=== PATIENT | male | born 1940 | race Caucasian/White ===

== ENCOUNTER → 2017-03-07 | Outpatient (CLI) | payer OTHER ==
[~2017-03-07] VITALS: Ht 167.6 cm; Wt 93.9 kg
[~2017-03-07] MED LIST: ACYCLOVIR 400400 MG PO; ALLOPURINOL 10100 M1 PO; ALLOPURINOL 30300 M2 PO; BENICAR20 MG; BENICAR40 MG PO; CONSTULOSE10 GM/15 M PO; DEMADEX20 MG PO; DOLOPHINE HCL10 MG PO; ENULOSE10 GM/15 M PO; GABAPENTIN 100100 MG PO; LINZESS145 MCG PO; METHADONE HCL 110 M1 PO; MOVANTIK25 MG PO; NAPROSYN500 MG PO; TERBINAFINE HC250 MG PO; VITAMIN B-12500 MCG PO; VITAMIN D2000 UNIT PO
--- NOTE | ~2017-03-07 | HPC ---
[place] [address] PAIN MANAGEMENT CONSULTATION Name: HERMANN ALVAREZ Room #: REG MAGO Rutledge#: [id number] Admission: 03/07/17 Attend Phys: Mehran Brody DO Discharge: Date of : 42 Report #: [id number] THIS REPORT FOR: //name// CC: Yves Brody HISTORY OF PRESENT ILLNESS: The patient is a 76-year-old gentleman being treated for cervical radiculopathy status post decompressive laminectomy, cervical myelopathy and neuropathic pain requiring complex medication management. Last seen in the pain clinic on 11/30/2016. The patient was continued on methadone 10 mg b.i.d. with lactulose for opioid-induced constipation. His last urine drug screen was 08/27/2016. Positive for prescribed medications. The patient had had an untoward drug reaction on the last visit, was having some erythema. 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 The erythematous skin reaction seems to have resolved. In retrospect, his treating physicians think maybe the culprit was Lyrica, which had been added to his gabapentin. It did cause some significant lower extremity edema. Presently, he is back to taking gabapentin 300 mg b.i.d. and methadone 10 mg b.i.d. Notes medications are providing sufficient analgesia to participate in activities of daily living. Rates his subjective pain score as 7 on a 0-10 visual analog scale, primarily neck and upper arms. We reviewed the fact that opiate medications are being used to provide analgesia adequate to support activities of daily living, not attempting to achieve a specific pain score on the 0-10 Visual Analog Scale. The current opiate medications are providing sufficient analgesia to allow the patient to participate in activities of daily living. The patient is not exhibiting any aberrant behavior suggestive of drug diversion. The patient is not having any adverse reactions to medications. The patient is not suffering from daytime somnolence or mental acuity changes. The patient is managing opiate-induced constipation with appropriate rcix-krt-mdwpwmb agents and dietary considerations. The patient was counseled on concern for caution with operating a motor vehicle while using opiate medications. A physical exam was performed and the patient's functional status was evaluated. All patients with back pain were advised against the bed rest greater than 4 days and were advised to return to normal activities. Pain score assessment was noted and the treatment plan was reviewed with the patient. All current medications, both prescribed and OTC were reviewed and reconciled on the electronic medical record. Tobacco screening was accomplished and smoking cessation was advised when indicated. BMI was noted and diet/exercise modification was recommended for all patients following outside normal parameters. I reviewed with the patient today their responsibilities to [address] [address] PAIN MANAGEMENT CONSULTATION Name: HERMANN ALVAREZ SUSAN Room #: REG CLJane Rutledge#: [id number] Admission: 03/07/17 Attend Phys: Mehran Brody DO Discharge: Date of : 42 Report #: [id number] prescription medications, reviewed their responsibility to utilize medications only as prescribed by the physician. They are to seek and receive pain medications only from 1 physician group ([facility]). They are to use 1 pharmacy and keep the clinic informed if they change pharmacies. Their responsibilities include making followup visits in a timely fashion and to avoid abrupt discontinuation of medication usage. Their responsibilities further include bringing their medications (bottles from the pharmacy with residual pills) to the visit for possible confirmation of pill counts and the patient understands it is their responsibility to submit to random drug screens to ensure both that the medications prescribed are present, and that no other controlled substances are present. All prescriptions provided today were generated electronically. PHYSICAL EXAMINATION: GENERAL: Generally unchanged, a 76-year-old gentleman. BMI is 33.4 kg/m2. VITAL SIGNS: Stable as noted in the EMR. MUSCULOSKELETAL: Cervical range of motion is limited. Upper extremity strength is symmetric. Subjective paresthesia in the upper arms. Hand grasp is symmetric. He does have facial asymmetry compatible with prior visits. He has had an extensive ACDF C3, C4, C5 and C6 in 2004. ASSESSMENT: Symptomatic cervical radiculopathy status post decompressive laminectomy, myelopathic pain component, neuropathic pain requiring complex medication management, stable on baseline medication. RECOMMENDATIONS: Continue methadone 10 mg b.i.d. I have taken the liberty of writing for 3 months of current medication, lactulose 10 mg/15 mL, dispensed 450 mL, dose is 15 mL daily for opioid-induced constipation. Follow up in 3 months for reevaluation, earlier if needed. <ELECTRONICALLY SIGNED> By: Mehran Brody DO 03/08/17 1626 [id number] Mehran Brody DO /nt
[2017-03-07 13:55] VITALS: BP 157/88
== END | disposition home or self-care (01) ==
LOC: PAIN 07:20
DX: M54.12 Radiculopathy, cervical region (principal); G62.9 Polyneuropathy, unspecified; G95.9 Disease of spinal cord, unspecified

== ENCOUNTER → 2017-07-12 | Outpatient (CLI) | payer OTHER ==
[~2017-07-12] VITALS: Ht 167.6 cm; Wt 94.4 kg
--- NOTE | ~2017-07-12 | HPC ---
[facility] [place] [address] PAIN MANAGEMENT CONSULTATION Name: HERMANN ALVAREZ Room #: REG MAGO Rutledge#: [id number] Admission: 07/12/17 Attend Phys: Mehran Brody DO Discharge: Date of : 42 Report #: [id number] THIS REPORT FOR: //name// CC: Yves Brody DATE OF SERVICE: 07/12/2017 The patient is a 76-year-old gentleman, long known to the pain clinic, being treated for cervical radiculopathy status post decompressive laminectomy, cervical myelopathy and neuropathic pain requiring high-risk complex medication management. The patient has continued on methadone 10 mg b.i.d., lactulose for opiate-induced constipation. Last urine drug screen 08/27/2016 was positive for prescribed medications. He returns to pain clinic today noting medications continue to be helpful for enabling the patient to participate in activities of daily living, rates the pain as a 7 on the Visual Analog Scale, but is able to function. Pain is primarily neck, both arms with some bipedal neuropathy. PHYSICAL EXAMINATION: Unchanged. A 76-year-old gentleman, 33.6 kilograms per meter squared body mass index. Vital signs stable. Rises from chair using armrests. Antalgic gait. Cervical range of motion is significantly limited. Upper extremity strength is diminished. Asymmetric facies due to neural compromise. We reviewed the fact that opiate medications are being used to provide analgesia adequate to support activities of daily living, not attempting to achieve a specific pain score on the 0-10 Visual Analog Scale. The current opiate medications are providing sufficient analgesia to allow the patient to participate in activities of daily living. The patient is not exhibiting any aberrant behavior suggestive of drug diversion. The patient is not having any adverse reactions to medications. The patient is not suffering from daytime somnolence or mental acuity changes. The patient is managing opiate-induced constipation with appropriate yhtc-lli-mmhdsib agents and dietary considerations. The patient was counseled on concern for caution with operating a motor vehicle while using opiate medications. A physical exam was performed and the patient's functional status was evaluated. All patients with back pain were advised against the bed rest greater than 4 days and were advised to return to normal activities. Pain score assessment was noted and the treatment plan was reviewed with the patient. All current medications, both prescribed and OTC were reviewed and reconciled on the electronic medical record. Tobacco screening was accomplished and smoking cessation was advised when indicated. BMI was noted and diet/exercise modification was recommended for all patients following outside normal [address] [address] PAIN MANAGEMENT CONSULTATION Name: HERMANN ALVAREZ Room #: REG MAGO Rutledge#: [id number] Admission: 07/12/17 Attend Phys: Mehran Brody DO Discharge: Date of : 42 Report #: [id number] parameters. I reviewed with the patient today their responsibilities to safeguard prescription medications, reviewed their responsibility to utilize medications only as prescribed by the physician. They are to seek and receive pain medications only from 1 physician group ( [facility]). They are to use 1 pharmacy and keep the clinic informed if they change pharmacies. Their responsibilities include making followup visits in a timely fashion and to avoid abrupt discontinuation of medication usage. Their responsibilities further include bringing their medications (bottles from the pharmacy with residual pills) to the visit for possible confirmation of pill counts and the patient understands it is their responsibility to submit to random drug screens to ensure both that the medications prescribed are present, and that no other controlled substances are present. All prescriptions provided today were generated electronically. ASSESSMENT: Cervical radiculopathy status post decompressive laminectomy, neuropathic pain, myelopathy requiring high-risk complex medication management, stable on baseline medication. RECOMMENDATION: Renewed methadone 10 mg b.i.d., lactulose 10 mg/15 mL, dispensed 450 mL, directions 15 mL per day as needed for opioid-induced constipation. Continue high fiber diet and fluids. Gabapentin 300 mg b.i.d. Follow up as needed for medication management. <ELECTRONICALLY SIGNED> By: Mehran Brody DO 07/15/17 1014 1604 1319 Mehran Brody DO /nt
[2017-07-12 13:06] VITALS: BP 134/71
== END | disposition home or self-care (01) ==
LOC: PAIN 06-28 07:53
DX: M54.12 Radiculopathy, cervical region (principal); Z98.890 Other specified postprocedural states; G62.9 Polyneuropathy, unspecified; Z68.33 Body mass index [BMI] 33.0-33.9, adult; Z79.899 Other long term (current) drug therapy

== ENCOUNTER → 2017-11-08 | Outpatient (CLI) | payer OTHER ==
[~2017-11-08] VITALS: Ht 167.6 cm; Wt 97.8 kg
--- NOTE | ~2017-11-08 | HPC ---
[facility] [place] [address] PAIN MANAGEMENT CONSULTATION Name: HERMANN ALVAREZ Room #: REG MAGO Rutledge#: [id number] Admission: 11/08/17 Attend Phys: Mehran Brody DO Discharge: Date of : 42 Report #: [id number] THIS REPORT FOR: //name// CC: Yves Brody DATE OF SERVICE: 11/08/2017 HISTORY OF PRESENT ILLNESS: The patient set a 76-year-old gentleman, being treated for cervical radiculopathy status post decompressive laminectomy, cervical myelopathy, bipedal neuropathy, complex medication management. Last seen in the pain clinic on 07/12/2017. Continue methadone 10 mg b.i.d., lactulose for OIC, gabapentin 300 mg b.i.d. He returns to pain clinic today. Last random urine drug screen was on 08/27/2016 positive for prescribed medication. Buccal drug swab was accomplished today. No aberrant behavior suggestive for drug diversion, simply complying with opiate consent to treat contract. The patient notes pain is an 8 on a VAS, primarily in the neck, both arms and bilateral feet. BMI is 34.8 kilograms per meter squared. Vital signs are stable as noted in the EMR. He has not had a fall in last 3 months, though does use a cane for balance. Medications were reconciled. Opiate consent to treat contract was signed on 05/07/2016. Does not use tobacco products. I reviewed his medical history, had his first ACDF in 1981, revision surgery in 2004 and his last cervical surgery in 2010. 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 This helped dramatically with chronic headaches. Dr. Anil Carson was his ENT surgeon at that time. Today notes medications are providing sufficient analgesia to participate in activities of daily living, still rates his pain quite high at 8 on a VAS, but notes he is able to participate in activities of daily living that he was unable to do without the medication. PHYSICAL EXAMINATION: Otherwise unchanged. We reviewed the fact that opiate medications are being used to provide analgesia adequate to support activities of daily living, not attempting to achieve a specific pain score on the 0-10 Visual Analog Scale. The current opiate medications are providing sufficient analgesia to allow the patient to participate in activities of daily living. The patient is not exhibiting any aberrant behavior suggestive of drug diversion. The patient is not having any adverse reactions to medications. The patient is not suffering from daytime somnolence or mental acuity changes. The patient is managing opiate-induced constipation with appropriate ywmw-zgl-drwnbzy agents and dietary [address] [address] PAIN MANAGEMENT CONSULTATION Name: ANTONIOHERMANN DICK Room #: REG MAGO Rutledge#: [id number] Admission: 11/08/17 Attend Phys: Mehran Brody DO Discharge: Date of : 42 Report #: [id number] considerations. The patient was counseled on concern for caution with operating a motor vehicle while using opiate medications. A physical exam was performed and the patient's functional status was evaluated. All patients with back pain were advised against the bed rest greater than 4 days and were advised to return to normal activities. Pain score assessment was noted and the treatment plan was reviewed with the patient. All current medications, both prescribed and OTC were reviewed and reconciled on the electronic medical record. Tobacco screening was accomplished and smoking cessation was advised when indicated. BMI was noted and diet/exercise modification was recommended for all patients following outside normal parameters. I reviewed with the patient today their responsibilities to safeguard prescription medications, reviewed their responsibility to utilize medications only as prescribed by the physician. They are to seek and receive pain medications only from 1 physician group ( [facility]). They are to use 1 pharmacy and keep the clinic informed if they change pharmacies. Their responsibilities include making followup visits in a timely fashion and to avoid abrupt discontinuation of medication usage. Their responsibilities further include bringing their medications (bottles from the pharmacy with residual pills) to the visit for possible confirmation of pill counts and the patient understands it is their responsibility to submit to random drug screens to ensure both that the medications prescribed are present, and that no other controlled substances are present. All prescriptions provided today were generated electronically. 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 RECOMMENDATION: 1. As noted in the initial paragraph, buccal drug swab accomplished today. 2. Continue current medication unchanged, methadone 10 mg b.i.d., lactulose for OIC and gabapentin 300 mg b.i.d. I did take the liberty of giving the patient Movantik samples (25 mg). Unfortunately, he has been unable to get this prescription authorized through either Medicare or [employer]. The cost for Movantik is quite high. He is aggressive with MiraLax bulk fiber in his diet, fluids and activity. Discharged in good and stable condition. Follow up in 3 months for reevaluation, earlier if needed. <ELECTRONICALLY SIGNED> By: Mehran Brody DO 11/11/17 1026 [id number] Mehran Brody DO /nt
[2017-11-08 13:28] VITALS: BP 147/80
== END ==
LOC: PAIN 07:02
DX: M54.12 Radiculopathy, cervical region (principal); G95.89 Other specified diseases of spinal cord; G62.9 Polyneuropathy, unspecified; M43.22 Fusion of spine, cervical region; Z79.899 Other long term (current) drug therapy; Z98.890 Other specified postprocedural states

== ENCOUNTER → 2018-06-04 | Outpatient (CLI) | payer OTHER ==
[~2018-06-04] VITALS: Ht 167.6 cm; Wt 94.0 kg
--- NOTE | ~2018-06-04 | HPC ---
[facility] [place] [address] PAIN MANAGEMENT CONSULTATION Name: HERMANN ALVAREZ Room #: REG MAGO BroderickBecky#: [id number] Admission: 06/04/18 Attend Phys: Tati Brown MD Discharge: Date of : 42 Report #: [id number] THIS REPORT FOR: //name// CC: [facility] physician/PCP Yves Brown DATE OF SERVICE: 06/04/2018 FOLLOWUP HISTORY: The patient is a 76-year-old gentleman who has been followed in the pain clinic by Dr. Mehran Brody. The patient has a history of cervical radiculopathy. He is status post decompressive laminectomies as well. He has had some problem with cervical myelopathy. He has bipedal neuropathy, complex medication management has been used to help contain his discomfort. He finds that methadone has been helpful. Gabapentin is beneficial as well. He has returned for renewal of his medications. The patient has been using his medication as prescribed. He feels that these medications are helpful. ALLERGIES: NEOSPORIN. CURRENT MEDICATIONS: Methadone 10 mg 1 tablet a.m., one half tablet at bedtime, lactulose 10 grams, vitamin B12 500 mcg, vitamin D3 2000 units, Demadex 20 mg b.i.d., Neurontin 300 mg tablets twice daily, Benicar 40 mg, and Zovirax 200 mg daily. PAST MEDICAL HISTORY: Hypertension, kidney disease, and stomach problems. PAST SURGICAL HISTORY: Vertebral surgery in 1982, C2, C3, and C4. In 1994, tumor below the right ear. In 2004, 2, 3, and 4 vertebral surgery. In 2010, 2, 3, and 4 vertebral surgery. 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 REVIEW OF SYSTEMS: Fatigue, generally good health, change in bowel movements, constipation, frequent urination, awakens to urinate, and strain with urination. LABORATORY DATA: Drug study shows methadone metabolites present. MRI of the cervical spine dated 08/28/2011. There is straightening of the cervical lordosis. There are surgical changes of an anterior cervical ____ with fusion at C3, C4, C4-C5, and C6. Anterior plates and screws are identified at C3, C4 and C4/C5. 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 PAIN CLINIC ASSESSMENT: 1. History of osteoarthritis, has arthritic changes in his neck. 2. Height 5 feet 6 inches, weight 207 pounds, [place] 33.7[place] [address] PAIN MANAGEMENT CONSULTATION Name: HERMANN ALVAREZ [facility] [id number] Admission: 06/04/18 Attend Phys: Tati Brown MD Discharge: Date of : 42 Report #: [id number] 3. Vital signs: Blood pressure 145/75, pulse 88, respiratory rate 16, room air saturation 96%. 4. Pain intensity 04/22. 5. Fall. The patient has not fallen in the last 3 months. 6. Blood thinner. The patient is not on a blood thinning medication. 7. Hypertension. The patient is being treated for hypertension. 8. Opiate therapy greater than 6 weeks. 9. Risk assessment tool, low risk for opioid use. 10. Functional assessment tool. 11. Opioid use. The patient is on opioid medication has used them for greater than last 6 weeks. Gets some medications from the pain clinic. 12. Recreational drug use. The patient denies use of recreational drugs. 13. Tobacco: The patient has never smoked. 14. Alcohol: The patient denies use of alcoholic beverages. PHYSICAL EXAMINATION: GENERAL: The patient is a well-developed white male Appears his stated age. He is alert and oriented x 3. HEENT: Normocephalic, asymmetric. The patient has some asymmetry with distortion of his right lip and mouth with scar tissue. NECK: Limited movement. CHEST: Clear to auscultation. ABDOMEN: Nontender. MUSCULOSKELETAL: Upper extremity muscle strength judged to be 4+/5 for the major muscle groups. Lower extremity muscle strength is judged to be 5/5 for the major muscle groups in the lower extremity. The patient walks with the use of a cane. IMPRESSION: 1. History of cervical fusion with cervical radiculopathy, status post compressive laminectomy. 2. Hypertension. 3. Kidney disease. 4. Stomach problems. RECOMMENDATIONS: We discussed treatment options with the patient. At this juncture, we will continue with his current medical regimen of methadone. The patient finds this treatment course is helpful. A script for the next 3 months has been written. The patient will call us if he has any problems with his medications. He will follow up in the near future. [address] [address] PAIN MANAGEMENT CONSULTATION Name: ANTONIOHERMANN SUSAN Room #: REG MAGO Rutledge#: [id number] Admission: 06/04/18 Attend Phys: Tati Brown MD Discharge: Date of : 42 Report #: [id number] We would like to thank you for letting us participate in his care. We hope he continues to improve. By: 1835 [id number] Tati Brown MD /nt
[2018-06-04 10:39] VITALS: BP 145/75
== END ==
LOC: PAIN 07:33
DX: M54.12 Radiculopathy, cervical region (principal); I12.9 Hypertensive chronic kidney disease with stage 1 through stage 4 chronic kidney disease, or unspecified chronic kidney disease; N18.9 Chronic kidney disease, unspecified; Z79.899 Other long term (current) drug therapy

== ENCOUNTER → 2018-08-29 | Outpatient (CLI) | payer OTHER ==
[~2018-08-29] VITALS: Ht 167.6 cm; Wt 95.6 kg
[~2018-08-29] MED LIST changes: +ACYCLOVIR 200200 MG PO; +CYMBALTA30 MG PO; +OLMESARTAN-HCT1 EAC1 PO
[2018-08-29 14:01] VITALS: BP 160/94
== END ==
LOC: PAIN 07:28
DX: M54.2 Cervicalgia (principal); M79.641 Pain in right hand; M79.642 Pain in left hand; M79.671 Pain in right foot; M79.672 Pain in left foot; Z79.891 Long term (current) use of opiate analgesic

== ENCOUNTER → 2018-11-26 | Outpatient (CLI) | payer OTHER ==
[~2018-11-26] VITALS: Ht 167.6 cm; Wt 93.0 kg
[~2018-11-26] MED LIST changes: +FLOMAX0.4 MG PO
--- NOTE | ~2018-11-26 | HPC ---
[facility] [place] [address] PAIN MANAGEMENT CONSULTATION Name: HERMANN ALVAREZ Room #: REG MAGO Aamir#: [id number] Admission: 11/26/18 Attend Phys: Tati Brown MD Discharge: Date of : 44 Report #: [id number] THIS REPORT FOR: //name// CC: [facility] physician/PCP Tati Brown DATE OF SERVICE: 11/26/2018 The patient does not have a primary care physician. CHIEF COMPLAINT: Here for medication renewal. HISTORY OF PRESENT ILLNESS: The patient is a 78-year-old gentleman who has been followed in the Pain Clinic. As you recall, he has chronic pain involving his cervical area with radicular pain as well as the patient has had cervical myelopathy. He is status post decompressive laminectomies. He has had bipedal neuropathy. He has been treated with complex medical management. He feels that his medications are working reasonably well today. He has been using methadone and found that 1-1/2 tablets are helpful, but feels that 2 methadone tablets would probably provide him more pain relief and more benefit when he is active. He does not have any problems with his medications. Pain involves both his arms as well as pain that radiates down into his feet. He describes his pain today as an 8/10. The weather has been quite problematic. We have number of cold spells come through as well as snow and rain. Notes that he sometimes has problems getting out of bed in the morning. ALLERGIES: NEOSPORIN. CURRENT MEDICATIONS: Methadone one 10 mg tablet a.m., one half tablet at bedtime, lactulose 10 grams, vitamin B12 500 mcg, vitamin D3 2000 units, Demadex 20 mg b.i.d., Neurontin 300 mg b.i.d., Benicar 40 mg, Zovirax 200 mg. PAIN CLINIC ASSESSMENT AND PQRS: 1. The patient has some osteoarthritic changes. He has had arthritic changes in his neck. The patient is not being treated for rheumatoid arthritis. 2. Height 5 feet 6 inches, weight 205 pounds, BMI is 33.1. 3. Vital signs: Blood pressure 183/82, pulse 90, respiratory rate 16, room air saturation 96%. 4. Pain intensity: /10. 5. Fall risk: The patient has not fallen in the last 3 months. 6. Blood thinner: The patient is not on a blood thinning medication. 7. Hypertension: The patient is being treated for hypertension. 8. Opioids greater than 6 weeks: The patient receives his medication from one source from Pain Clinic. 9. Risk assessment tool: 10/16, low for opioid use. 10. Functional assessment tool: . [address] [address] PAIN MANAGEMENT CONSULTATION Name: HERMANN ALVAREZ [id number] Admission: 11/26/18 Attend Phys: Tati Brown MD Discharge: Date of : 44 Report #: [id number] 11. Recreational drug use: The patient denies use of recreational drugs. 12. Tobacco: The patient has never smoked. 13. Alcohol: The patient denies use of alcoholic beverages. PHYSICAL EXAMINATION: GENERAL: The patient is a well-developed, well-nourished, white male. He appears his stated age. He is alert and oriented x 3. His affect is appropriate. Speech is fluent. HEENT: Normocephalic, atraumatic. Extraocular eye muscles intact. The patient's right side of his face is somewhat distorted. He has some scar tissue in this area. 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 The patient has a well-healed scar approximately 2 inches in the posterior portion of his neck. ABDOMEN: Nontender. MUSCULOSKELETAL: Upper extremity strength is judged to be 4+/5 for the major muscle groups. Lower extremity muscle strength is judged to be 4+/5. The patient walks with the use of a cane. IMPRESSION: 1. History of cervical fusion and cervical radiculopathy, status post decompressive laminectomy. 2. Hypertension. 3. Kidney disease. 4. Stomach problems. RECOMMENDATIONS: We discussed treatment options with the patient. The patient feels that the methadone medication is helpful. He is taking 5 mg in the evening. He would like to increase it to 10 mg at bedtime. Overall, he feels that this would probably provide him more pain relief and greater benefit. We will increase his medication from 10 mg methadone in the morning and 5 mg at bedtime to 10 mg p.o. b.i.d. The patient is aware of opioid use can be problematic. We have discussed in the past the problems of opioids with addiction as well as decreased effectiveness over a period of time with the development of tolerance. He feels that his medications are working reasonably well. He keeps his medications in a guarded area. He would like to have the medications renewed and we will write for them. A script for his medications has been rewritten. He will take methadone 10 mg 1 p.o. b.i.d. and call us if he has any problems with the medication. We would like to thank you for letting us participate in his care. We hope he continues to improve. By: [id number] MD milana Alvarado
[2018-11-26 14:13] VITALS: BP 183/82
--- NOTE | 2018-11-26 14:16 | NUR ---
Pain Clinic Assessment: 1. History of Osteoarthritis: Not Applicable History of Rheumatoid Arthritis: Not Applicable 2. Height: 5 ft. 6 in. 167.6 cm. Weight: 205.0 lb. oz. 92.988 kg. Patient's BMI: 33.1 3. Vital Signs: BP: 183/82 Pulse: 90 Resp: 16 Temp: 02 Sat: 96 ECG Mon: 4. Pain Intensity: 8 5. Fall Risk: Dizziness: N Needs help standing or walking: N Fallen in the last 3 months: N Fall risk comments: 6. Patient on Blood Thinner: NONE 7. History of Hypertension: Y 8. Opioid Therapy greater than 6 weeks: Y Opiate Contract Signed: 05/07/16 9. Risk Assessment Tool Provided: LOW RISK 10/16 10. Functional Assessment Tool: 11. Recreational Drug Use: Never Drug Type: Tobacco Use: Never Smoker Tobacco Type: Amount or Packs/day: How Many Years: Alcohol Use: No Frequency: Quant:
== END ==
LOC: PAIN 07:14
DX: M54.12 Radiculopathy, cervical region (principal); I10 Essential (primary) hypertension; N28.9 Disorder of kidney and ureter, unspecified; Z98.890 Other specified postprocedural states; Z88.8 Allergy status to other drugs, medicaments and biological substances; Z79.899 Other long term (current) drug therapy

== ENCOUNTER → 2019-02-18 | Outpatient (CLI) | payer OTHER ==
[~2019-02-18] VITALS: Ht 167.6 cm; Wt 93.4 kg
[2019-02-18 11:01] VITALS: BP 151/70
--- NOTE | 2019-02-18 11:10 | NUR ---
Pain Clinic Assessment: 1. History of Osteoarthritis: Not Applicable History of Rheumatoid Arthritis: Not Applicable 2. Height: 5 ft. 6 in. 167.6 cm. Weight: 206.0 lb. oz. 93.441 kg. Patient's BMI: 33.3 3. Vital Signs: BP: 151/70 Pulse: 85 Resp: 20 Temp: 02 Sat: 95 ECG Mon: 4. Pain Intensity: 7 5. Fall Risk: Dizziness: N Needs help standing or walking: Y Fallen in the last 3 months: N Fall risk comments: 6. Patient on Blood Thinner: NONE 7. History of Hypertension: Y 8. Opioid Therapy greater than 6 weeks: Y Opiate Contract Signed: 05/07/16 9. Risk Assessment Tool Provided: LOW RISK 10/16 10. Functional Assessment Tool: 11. Recreational Drug Use: Never Drug Type: Tobacco Use: Never Smoker Tobacco Type: Amount or Packs/day: How Many Years: Alcohol Use: No Frequency: Quant:
--- NOTE | 2019-02-19 16:21 | HPC ---
[facility] [address] [place] [address] PAIN MANAGEMENT CONSULTATION Name: HERMANN ALVAREZ Room #: REG Jane Broderick.#: [id number] Admission: 02/18/19 ������������������ Attend Phys: Nasrin Meza Discharge: ������������������ Date of : 44 Report #: [id number] THIS REPORT FOR: //name// CC: Nasrin Meza [facility] physician/PCP DATE OF SERVICE: 02/18/2019 CHIEF COMPLAINT: Chronic neck pain. HISTORY OF PRESENT ILLNESS: This is a very pleasant gentleman who returns to the pain clinic today for refill of his medications. He has chronic pain involving his cervical area that does have radicular symptoms that radiate into the bilateral arms to his elbows. He tells me that his pain score today is a 7/10. He thinks that the increase in his methadone from his last visit to 10 mg b.i.d. has been helpful with relieving some of his pain, though he continues to have ongoing neck pain. He has had multiple surgeries in his neck in the past. 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 ALLERGIES: NEOSPORIN. CURRENT MEDICINES: Methadone 10 mg b.i.d., Flomax 0.4 mg daily, valacyclovir 20 mg up to 5 times a day, olmesartan hydrochlorothiazide once daily, Cymbalta 30 mg b.i.d., vitamin B12 daily, vitamin D3 b.i.d., Demadex 20 mg b.i.d., gabapentin 300 mg b.i.d. and lactulose. PQRS: 1. He does have some arthritic changes in his neck. He is not being treated for rheumatoid arthritis. 2. Height is 5 feet 6 inches, weight is 206, BMI is 33. 3. Vital signs: 151/70, pulse is 85, respirations 20, oxygen sat is 95, pain score 7/10. 4. Fall risk. Denies dizziness. Does need some help with walking. He has not fallen in the last 3 months. The patient does not take blood thinners, but does take antihypertensive medicines. 5. His opioid therapy is greater than 6 weeks; therefore, an opioid signed contract is on the chart. 6. His risk assessment tool is low. His functional assessment is . 7. Recreational drug use. He denies. He is not a smoker and does not drink alcohol. PHYSICAL EXAMINATION: GENERAL: This is a well-developed, well-nourished white gentleman who appears his stated age. Placing his pain score today at 7/10. His affect is appropriate [place] [address] PAIN MANAGEMENT CONSULTATION Name: HERMANN ALVAREZ Room #: REG MAGO [facility]#: [id number] Admission: 02/18/19 ������������������ Attend Phys: Nasrin Meza Discharge: ������������������ Date of : 44 Report #: [id number] HEENT: Normocephalic, atraumatic. Extraocular eye muscles are intact. His right side of his face is slightly distorted. 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 He does have a scar in the anterior portion of his neck as well as the posterior portion of his neck that are well-healed. NECK: The patient does have pain with extension and rotation of his neck. MUSCULOSKELETAL: Upper extremity strength judged to be 4/5 in all major muscle groups. Lower extremity strength judged to be 4/5. He does walk with a cane. He also has tenderness in his C7-T1 distribution. Pain radiates into bilateral upper arms to his elbows. IMPRESSION: 1. Cervical fusion history and cervical radiculopathy, status post cervical decompression laminectomy. 2. Hypertension. 3. Stomach problems. 4. Complex medical management under terms of written opioid agreement. We checked the prescription monitoring system. The patient is filling appropriately from his medications with no aberrant behavior noted. He tells me that he does safeguard his medications. We reviewed the fact that opiate medications are being used to provide analgesia adequate to support activities of daily living, not attempting to achieve a specific pain score on the 0-10 Visual Analog Scale. The current opiate medications are providing sufficient analgesia to allow the patient to participate in activities of daily living. The patient is not exhibiting any aberrant behavior suggestive of drug diversion. The patient is not having any adverse reactions to medications. The patient is not suffering from daytime somnolence or mental acuity changes. The patient is managing opiate-induced constipation with appropriate [id number] agents and dietary considerations. The patient was counseled on concern for caution with operating a motor vehicle while using opiate medications. A physical exam was performed and the patient's functional status was evaluated. All patients with back pain were advised against the bed rest greater than 4 days and were advised to return to normal activities. Pain score assessment was noted and the treatment plan was reviewed with the patient. All current medications, both prescribed and OTC were reviewed and reconciled on the electronic medical record. Tobacco screening was accomplished and smoking cessation was advised when indicated. BMI was noted and diet/exercise modification was recommended for all patients following outside normal parameters. I reviewed with the patient today their responsibilities to safeguard prescription medications, reviewed their responsibility to utilize medications [address] [address] PAIN MANAGEMENT CONSULTATION Name: HERMANN ALVAREZ Room #: REG [facility].#: [id number] Admission: 02/18/19 ������������������ Attend Phys: Nasrin KAILEY Meza Discharge: ������������������ Date of : 44 Report #: [id number] only as prescribed by the physician. They are to seek and receive pain medications only from 1 physician group ( [facility]). They are to use 1 pharmacy and keep the clinic informed if they change pharmacies. Their responsibilities include making followup visits in a timely fashion and to avoid abrupt discontinuation of medication usage. Their responsibilities further include bringing their medications (bottles from the pharmacy with residual pills) to the visit for possible confirmation of pill counts and the patient understands it is their responsibility to submit to random drug screens to ensure both that the medications prescribed are present, and that no other controlled substances are present. All prescriptions provided today were generated electronically. PLAN: 1. We discussed treatment options with the patient today; this included a possible cervical or high thoracic epidural steroid injection. He has not had one of those at this facility, though he had one prior to his surgeries in the distant past. He does have pain that seems to be generating from the C7-T1 dermatomal distribution that is radiating into his arms. So, we did discuss the possible cervical epidural that could do at the patient's convenience. The patient decided at this time that he would try to have that done possibly in 3 months when he refills his medications. He feels that this is just an ongoing pain that he can live with it until then. 2. Scripts given for his methadone 10 mg b.i.d., #60 for today, 4 and 8-week release. The patient tells me that it has been helpful since did increase his methadone at his last visit. He does not have any problems with increased constipation since he takes lactulose. 3. The patient will follow up in 3 months' time. At that time, will possibly have a cervical epidural steroid injection. 4. Dr. Edinson Brown did come and see the patient and collaborated on care. ��������������������������������������������� <ELECTRONICALLY SIGNED> ���������������������������������������� By: Nasrin Meza ��������������������������������������������� 02/19/19 [id number] [id number] Nasrin Meza /nt
== END ==
LOC: PAIN 06:51
DX: M54.12 Radiculopathy, cervical region (principal); M43.22 Fusion of spine, cervical region; M96.1 Postlaminectomy syndrome, not elsewhere classified; K92.9 Disease of digestive system, unspecified; I10 Essential (primary) hypertension; Z79.891 Long term (current) use of opiate analgesic; Z79.899 Other long term (current) drug therapy

== ENCOUNTER → 2019-05-22 | Outpatient (CLI) | payer OTHER ==
[~2019-05-22] VITALS: Ht 167.6 cm; Wt 83.7 kg
[~2019-05-22] MED LIST changes: +LOSARTAN POTASS50 MG PO
--- NOTE | ~2019-05-22 | HPC ---
[facility] [place] [address] PAIN MANAGEMENT CONSULTATION Name: HERMANN ALVAREZ Room #: REG MAGO Aamir#: [id number] Admission: 05/22/19 Attend Phys: Tati Brown MD Discharge: Date of : 42 Report #: [id number] THIS REPORT FOR: //name// CC: FRANCIA Brown Physician staff DATE OF SERVICE: 05/22/2019 CHIEF COMPLAINT: Chronic neck pain. HISTORY: The patient is a pleasant 78-year-old gentleman, who has been followed in the pain clinic because of chronic pain. He has had some chronic pain involving his neck. He has had a fusion in the cervical area. He did needs surgery because of cervical myelopathy. He still has bipedal neuropathy. He continues to be treated with complex medical regimen of opioid medications to help control his pain. He feels that the methadone medication continues to be helpful and continues to use gabapentin as well. He has returned today with a desire to undergo renewal of his medications. The patient has pain involving his arms as well as pain down into his feet. He sometimes has problems in getting out of bed in the morning. After he takes his medication, he notes an improvement in his pain. He feels that the methadone is working reasonably well, it is not causing any problems with his sensorium or his ability to engage in activities of daily living. CURRENT MEDICATIONS: Methadone 10 mg 1 p.o. daily, one-half tablet at bedtime; lactulose 10 grams, vitamin B12 500 mcg, vitamin D3 2000 units, Demadex 20 mg b.i.d., Neurontin 300 mg b.i.d., Benicar 40 mg, and Zovirax 20 mg daily. ALLERGIES: NEOSPORIN. PAIN CLINIC ASSESSMENT AND PQRS: 1. History of osteoarthritis. The patient has arthritic changes in his neck. The patient is not being treated for rheumatoid arthritis. 2. Pain intensity is 7/8. 3. Fall history: The patient has not fallen in the last 3 months. 4. Blood thinner. The patient is not on a blood thinning medication. 5. Hypertension. The patient is being treated for hypertension. 6. Opioids greater than 6 weeks. The patient receives his medication from one source, the pain clinic. 7. Risk assessment tool, low for opioid use. 8. Functional assessment tool, . 9. Recreational drug use. The patient denies. 10. Tobacco: The patient has never smoked. 11. Alcohol: The patient denies use of alcoholic beverages. [address] [address] PAIN MANAGEMENT CONSULTATION Name: HERMANN ALVAREZ Room #: REG [facility]#: [id number] Admission: 05/22/19 Attend Phys: Tati Brown MD Discharge: Date of : 42 Report #: [id number] PHYSICAL EXAMINATION: GENERAL: The patient is a well-developed, well-nourished white male. He appears his stated age. He is alert and oriented x 3. His affect is appropriate. Speech is fluent. Height is 5 feet 6 inches, weight is 184 pounds, and BMI is 29.8. VITAL SIGNS: Blood pressure is 132/56, pulse is 71, respiratory rate is 16, and room air saturation is 96%. HEENT: Normocephalic, atraumatic. Extraocular eye muscles intact. Sclerae nonicteric. Mucous membranes are moist. The patient has somewhat distortion of his right lip and mouth secondary to scar. He has a well-healed scar in the posterior portion of his neck. HEART: Regular rate. ABDOMEN: Nontender. MUSCULOSKELETAL: Upper extremity muscle strength is judged to be 4+/5 for the major muscle groups in the upper extremity. Lower extremity muscle strength is 4/5 for the major muscle groups in the lower extremity. He is in a wheelchair and does walk with a cane. IMPRESSION: 1. History of cervical fusion with cervical radiculopathy, status post decompressive laminectomy. 2. Hypertension. 3. Kidney disease. 4. Stomach problems. RECOMMENDATIONS: We have discussed treatment options with the patient. At this juncture, we will continue with his medications. We explained that cervical epidural steroid injection might be problematic given that he has had surgery in the neck area. The usual landmarks have been removed. At this juncture, we will continue with the conservative approach with use of methadone. A script for his medications has been provided. The patient keeps his medications in a guarded area. He is aware that opioid medications are problematic for some patients. He is not exhibiting any symptoms or activities, which would make us think that he is addicted. He keeps his medications in a guarded area. He is aware that they can become less effective over a long period of time secondary to development of tolerance. A script for his medications has been written. He will continue with the methadone 10 mg 1 p.o. b.i.d., a total of 3 months of medication has been dispensed. He will call us should he have any concerns. [address] [address] PAIN MANAGEMENT CONSULTATION Name: HERMANN ALVAREZ Room #: REG [facility].#: [id number] Admission: 05/22/19 Attend Phys: Tati Brown MD Discharge: Date of : 42 Report #: [id number] We would like to thank you for letting us to participate in his care. We will continue helping control his pain with complex medical management using opioids. By: [id number] Tati Brown MD /CHIDI
[2019-05-22 13:02] VITALS: BP 132/56
--- NOTE | 2019-05-22 13:23 | NUR ---
Pain Clinic Assessment: 1. History of Osteoarthritis: Not Applicable History of Rheumatoid Arthritis: Not Applicable 2. Height: 5 ft. 6 in. 167.6 cm. Weight: 184.6 lb. oz. 83.734 kg. Patient's BMI: 29.8 3. Vital Signs: BP: 132/56 Pulse: 71 Resp: 16 Temp: 02 Sat: 96 ECG Mon: 4. Pain Intensity: 7-8 5. Fall Risk: Dizziness: N Needs help standing or walking: Y Fallen in the last 3 months: N Fall risk comments: 6. Patient on Blood Thinner: NONE 7. History of Hypertension: Y 8. Opioid Therapy greater than 6 weeks: Y Opiate Contract Signed: 05/07/16 9. Risk Assessment Tool Provided: LOW RISK 10/16 10. Functional Assessment Tool: 11. Recreational Drug Use: Never Drug Type: Tobacco Use: Never Smoker Tobacco Type: Amount or Packs/day: How Many Years: Alcohol Use: No Frequency: Quant:
== END ==
LOC: PAIN 06:51
DX: M54.12 Radiculopathy, cervical region (principal); I10 Essential (primary) hypertension; M43.22 Fusion of spine, cervical region; Z79.899 Other long term (current) drug therapy; Z88.8 Allergy status to other drugs, medicaments and biological substances

== ENCOUNTER → 2019-08-12 | Outpatient (CLI) | payer OTHER ==
[~2019-08-12] VITALS: Ht 167.6 cm; Wt 91.6 kg
[2019-08-12 13:08] VITALS: BP 150/70
--- NOTE | 2019-08-12 13:14 | NUR ---
Pain Clinic Assessment: 1. History of Osteoarthritis: NECK History of Rheumatoid Arthritis: DENIES 2. Height: 5 ft. 6 in. 167.6 cm. Weight: 202.0 lb. oz. 91.627 kg. Patient's BMI: 32.6 3. Vital Signs: BP: 150/70 Pulse: 86 Resp: 22 Temp: 02 Sat: 99 ECG Mon: 4. Pain Intensity: 8 5. Fall Risk: Dizziness: N Needs help standing or walking: Y Fallen in the last 3 months: Y Fall risk comments: FELL 3 WEEKS AGO- DID NOT SEEK CARE 6. Patient on Blood Thinner: NONE 7. History of Hypertension: Y 8. Opioid Therapy greater than 6 weeks: Y Opiate Contract Signed: 05/07/16 9. Risk Assessment Tool Provided: LOW RISK 10/16 10. Functional Assessment Tool: 11. Recreational Drug Use: Never Drug Type: Tobacco Use: Never Smoker Tobacco Type: Amount or Packs/day: How Many Years: Alcohol Use: No Frequency: Quant:
--- NOTE | 2019-08-13 08:50 | HPC ---
[facility] [place] [address] PAIN MANAGEMENT CONSULTATION Name: HERMANN ALVAREZ Room #: REG [facility] MIke.#: [id number] Admission: 08/12/19 Attend Phys: Nasrin Meza Discharge: Date of : 42 Report #: [id number] THIS REPORT FOR: //name// CC: Nasrin Randle MD Physician staff DATE OF SERVICE: 08/12/2019 CHIEF COMPLAINT: Chronic neck pain, bilateral arm pain. HISTORY OF PRESENT ILLNESS: This is a very pleasant 78-year-old gentleman who returns to the pain clinic today for refill of his medication that he uses to help treat his ongoing cervical radiculopathy that radiates into his bilateral arms. He reports a pain score of 8/10 today stating that his medications do not last quite as long as they had in the past, was wondering if he could have a possible increase in his medicines. 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 He reports that he did fall a few weeks ago, lost his balance, and did not need to go to the Emergency Room or seek medical attention. He reports that he has been more careful standing more slowly before he walks or moves too quickly, so to prevent falls. He does use a cane at all times. CURRENT MEDICATIONS: Methadone 10 mg b.i.d., losartan 50 mg daily, Flomax 0.4 mg daily, acyclovir 200 mg up to 5 times a day, olmesartan hydrochlorothiazide daily, vitamin B12, vitamin D, Demadex 20 mg b.i.d. and gabapentin 100 mg b.i.d. PQRS: 1. He does have a history of osteoarthritis in his neck. He is not being treated for rheumatoid arthritis. 2. Height is 5 feet 6 inches, weight is 202. BMI is 32. 3. Vital signs, 150/70, pulse is 86, respirations 22, and oxygen sat is 99. 4. Pain score is 8/10. 5. Denies dizziness. Does need help walking, uses a cane, has fallen in the last 3 months as well. 6. The patient is not on any blood thinners, but does take medicine for hypertension. His opioid therapy is greater than 6 weeks; therefore, an opioid signed contract is on the chart. His risk assessment tool is low. Functional assessment is 13/70. 7. Recreational drug use, he denies. He is not a smoker and occasionally and does not drink alcohol. According to the prescription monitoring system, the patient is due to fill [address] [address] PAIN MANAGEMENT CONSULTATION Name: HERMANN ALVAREZ Room #: REG CLJane Rutledge#: [id number] Admission: 08/12/19 Attend Phys: Nasrin Meza Discharge: Date of : 42 Report #: [id number] these medications today in a timely fashion. There is a recent drug screen on the chart as well. PHYSICAL EXAMINATION: GENERAL: This is a well-developed, well-nourished white gentleman who appears his stated age. He is alert and orientated x 3. His affect is appropriate. HEENT: Normocephalic, atraumatic. Extraocular eye muscles are intact. Mucous membranes are moist. He has a well-healed scar on the posterior portion of his neck. MUSCULOSKELETAL: Upper extremity strength judged to be 4/5 for major muscle groups in the left upper extremity. He does walk with a cane and has a very slow shuffling antalgic gait. He has tenderness in his paraspinal muscles of his cervical spine. IMPRESSION: 1. History of cervical fusion post decompression laminectomy. 2. Cervical radiculopathy. 3. Hypertension. 4. Kidney disease. 5. Management of high-risk medications under terms of written opioid agreement. We reviewed the fact that opiate medications are being used to provide analgesia adequate to support activities of daily living, not attempting to achieve a specific pain score on the 0-10 Visual Analog Scale. The current opiate medications are providing sufficient analgesia to allow the patient to participate in activities of daily living. The patient is not exhibiting any aberrant behavior suggestive of drug diversion. The patient is not having any adverse reactions to medications. The patient is not suffering from daytime somnolence or mental acuity changes. The patient is managing opiate-induced constipation with appropriate [id number] agents and dietary considerations. The patient was counseled on concern for caution with operating a motor vehicle while using opiate medications. A physical exam was performed and the patient's functional status was evaluated. All patients with back pain were advised against the bed rest greater than 4 days and were advised to return to normal activities. Pain score assessment was noted and the treatment plan was reviewed with the patient. All current medications, both prescribed and OTC were reviewed and reconciled on the electronic medical record. Tobacco screening was accomplished and smoking cessation was advised when indicated. BMI was noted and diet/exercise modification was recommended for all patients following outside normal parameters. I reviewed with the patient today their responsibilities to safeguard prescription medications, reviewed their responsibility to utilize medications only as prescribed by the physician. They are to seek and receive pain [address] [address] PAIN MANAGEMENT CONSULTATION Name: HERMANN ALVAREZ [id number] Admission: 08/12/19 Attend Phys: Nasrin KAILEY Mckeonmati Discharge: Date of : 42 Report #: [id number] medications only from 1 physician group ( [facility]). They are to use 1 pharmacy and keep the clinic informed if they change pharmacies. Their responsibilities include making followup visits in a timely fashion and to avoid abrupt discontinuation of medication usage. Their responsibilities further include bringing their medications (bottles from the pharmacy with residual pills) to the visit for possible confirmation of pill counts and the patient understands it is their responsibility to submit to random drug screens to ensure both that the medications prescribed are present, and that no other controlled substances are present. All prescriptions provided today were generated electronically. PLAN: 1. We discussed treatment options with the patient today. The patient is wanting to increase his methadone. I explained to him we worry about the risk of side effects with higher dose of the medication, an example is he recently fell, that higher doses that could be impaired even more, and according to the CDC guidelines, he is already at 60 morphine mEq a day. We try to keep our patients at 50 or below. I encouraged him to try splitting his dose to 5 mg in the morning, 5 mg in late afternoon and then 10 at bedtime to see if this is more beneficial in controlling some of his pain. That way, there is not a need to increase his actual strength of medication. The patient verbalizes understanding. He will try to alter the times of his medication administration. 2. The patient is given scripts for 10 mg b.i.d., #60, for today, 4-week and 8-week. 3. The patient is seen in collaboration with Dr. Edinson Brown who did see the patient as well today. <ELECTRONICALLY SIGNED> By: Nasrin Meza 08/13/19 0850 1402 [id number] Nasrin Meza /nt
== END ==
LOC: PAIN 07:08
DX: M54.12 Radiculopathy, cervical region (principal); I13.10 Hypertensive heart and chronic kidney disease without heart failure, with stage 1 through stage 4 chronic kidney disease, or unspecified chronic kidney disease; N18.9 Chronic kidney disease, unspecified; Z79.899 Other long term (current) drug therapy; Z79.891 Long term (current) use of opiate analgesic

== ENCOUNTER → 2019-11-13 | Outpatient (CLI) | payer OTHER ==
[~2019-11-13] VITALS: Ht 167.6 cm; Wt 97.1 kg
[~2019-11-13] MED LIST changes: +LACTULOSE10 GM/152 PO; +NARCAN4 MG NARES
[2019-11-13 11:07] VITALS: BP 172/71
--- NOTE | 2019-11-13 11:10 | NUR ---
Pain Clinic Assessment: 1. History of Osteoarthritis: NECK History of Rheumatoid Arthritis: DENIES 2. Height: 5 ft. 6 in. 167.6 cm. Weight: 214.0 lb. oz. 97.070 kg. Patient's BMI: 34.6 3. Vital Signs: BP: 172/71 Pulse: 90 Resp: 18 Temp: 02 Sat: 98 ECG Mon: 4. Pain Intensity: 7 5. Fall Risk: Dizziness: N Needs help standing or walking: N Fallen in the last 3 months: N Fall risk comments: FELL 3 WEEKS AGO- DID NOT SEEK CARE 6. Patient on Blood Thinner: NONE 7. History of Hypertension: Y 8. Opioid Therapy greater than 6 weeks: Y Opiate Contract Signed: 05/07/16 9. Risk Assessment Tool Provided: LOW RISK 10/16 10. Functional Assessment Tool: 11. Recreational Drug Use: Never Drug Type: Tobacco Use: Never Smoker Tobacco Type: Amount or Packs/day: How Many Years: Alcohol Use: No Frequency: Quant:
--- NOTE | 2019-11-20 08:39 | HPC ---
[facility] [address] [place] [address] PAIN MANAGEMENT CONSULTATION Name: HERMANN ALVAREZ Room #: REG MAGO Broderick.#: [id number] Admission: 11/13/19 Attend Phys: Tati Brown MD Discharge: Date of : 42 Report #: [id number] THIS REPORT FOR: cc: ADRIAN RUTLEDGE Physician not on staff Tati Brown MD ~ THIS REPORT FOR: //name// CC: ADRIAN Brown Physician staff DATE OF SERVICE: 11/13/2019 PRIMARY CARE PHYSICIAN: Dr. Adrian Rutledge. CHIEF COMPLAINT: Chronic pain that radiates down into both arms and into the hands with numbness and tingling. HISTORY: The patient is a 78-year-old gentleman who has been followed in the pain clinic because of chronic pain. He has had fusion in the cervical area. Surgery was performed because of cervical myelopathy at that time. He still has ____ bipedal neuropathy. Continues to find that his medications are helpful. He has returned today with the hope of renewing these medications. Has pain in both arms as well as both feet. Describes the pain as dull and aching. Rates it as a 7/10 today. Pain is exacerbated with walking. He finds his medications are helpful. Lying down can be beneficial as well. ALLERGIES: NEOSPORIN. CURRENT MEDICATIONS: Methadone 10 mg b.i.d., losartan 50 mg daily, Flomax 0.4 mg daily, acyclovir 200 mg up to 5 times daily, olmesartan daily, vitamin B12, vitamin D, Demadex 20 mg b.i.d., gabapentin 100 mg b.i.d. PAIN CLINIC ASSESSMENT AND PQRS: 1. The patient does have osteoarthritic changes in his neck. He is not being treated for rheumatoid arthritis. 2. Height 5 feet 6 inches, weight 214 pounds, BMI is 34.6. 3. Vital signs. Blood pressure 172/71, pulse 90, respiratory rate 18, room air saturation 98%. 4. Pain intensity 04/22. 5. Fall history: The patient did fall 3 weeks ago. He did not seek medical attention. 6. Blood thinner. The patient is not on a blood thinning medication. 7. Hypertension. The patient is being treated for hypertension. 8. Opioids greater than 6 weeks. The [place] [address] PAIN MANAGEMENT CONSULTATION Name: HERMANN ALVAREZ SUSAN Room #: REG CL Aamir#: [id number] Admission: 11/13/19 Attend Phys: Tati Brown MD Discharge: Date of : 42 Report #: [id number] source, the pain clinic. 9. Risk assessment tool, low for opioid use. 10. Functional assessment tool, 13 out of 70. 11. Recreational drug use: The patient denies. 12. Tobacco: The patient has never smoked. 13. Alcohol. The patient denies frequent use of alcoholic beverages. PHYSICAL EXAMINATION: GENERAL: The patient is a well-developed, well-nourished white male. Appears his stated age. He is alert and oriented x 3. His affect is appropriate. Speech is fluent. HEENT: Normocephalic, atraumatic. Extraocular eye muscles intact. 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 Also, has a scar in the angle of his mouth. He has a well-healed scar in the posterior portion of his neck. HEART: Regular rate. ABDOMEN: Nontender. MUSCULOSKELETAL: Upper extremity muscle strength judged to be 4+/5 for the major muscle groups in the upper extremity. Lower extremity muscle strength 4+/5 for the major muscles in the lower extremity. He does walk and use a cane. IMPRESSION: 1. History of cervical fusion with cervical radiculopathy, status post decompressive laminectomy. 2. Hypertension. 3. Kidney disease. 4. Stomach problems. 5. Chronic pain treated with opioids to help control the discomfort. RECOMMENDATIONS: We discussed treatment options with the patient. At this juncture, we will continue with his current medications. He finds that the medications help pain. He will continue with methadone 10 mg t.i.d. He has been given a script for 8 weeks. He will also use a naloxone 4 mg spray p.r.n. should the need arise with respiratory depression or a family member would take his medications. Lactulose on a daily basis is helpful with bowel movements. A script for the lactulose has been rewritten. He will take 30 mL daily. He will call us if he has any concerns. We would like to thank you for letting us participate in his care. We hope he continues to improve. Questions were sought and answered for the patient. <ELECTRONICALLY SIGNED> By: Tati Brown MD 11/20/19 0839 [id number] [id number] Tati Brown MD /CHIDI
== END ==
LOC: PAIN 06:48
DX: M54.12 Radiculopathy, cervical region (principal); G89.29 Other chronic pain; I10 Essential (primary) hypertension; N28.9 Disorder of kidney and ureter, unspecified; Z79.899 Other long term (current) drug therapy

== ENCOUNTER → 2020-02-12 | Outpatient (CLI) | payer OTHER ==
[~2020-02-12] VITALS: Ht 167.6 cm; Wt 96.1 kg
[~2020-02-12] MED LIST changes: +LACTULOSE10 GM/154 PO
[2020-02-12 09:18] VITALS: BP 150/68
--- NOTE | 2020-02-12 09:31 | NUR ---
Pain Clinic Assessment: 1. History of Osteoarthritis: NECK History of Rheumatoid Arthritis: DENIES 2. Height: 5 ft. 6 in. 167.6 cm. Weight: 211.8 lb. oz. 96.072 kg. Patient's BMI: 34.2 3. Vital Signs: BP: 150/68 Pulse: 85 Resp: 16 Temp: 02 Sat: 96 ECG Mon: 4. Pain Intensity: 8 5. Fall Risk: Dizziness: N Needs help standing or walking: Y Fallen in the last 3 months: N Fall risk comments: FELL 3 WEEKS AGO- DID NOT SEEK CARE 6. Patient on Blood Thinner: NONE 7. History of Hypertension: Y 8. Opioid Therapy greater than 6 weeks: Y Opiate Contract Signed: 05/07/16 9. Risk Assessment Tool Provided: LOW RISK 10/16 10. Functional Assessment Tool: 11. Recreational Drug Use: Never Drug Type: Tobacco Use: Never Smoker Tobacco Type: Amount or Packs/day: How Many Years: Alcohol Use: No Frequency: Quant:
--- NOTE | 2020-02-15 08:49 | HPC ---
[facility] [place] [address] PAIN MANAGEMENT CONSULTATION Name: HERMANN ALVAREZ Room #: REG MAGO Davie.#: [id number] Admission: 02/12/20 Attend Phys: Nasrin Meza Discharge: Date of : 42 Report #: [id number] THIS REPORT FOR: cc: Yves Alonzo MD, Jeffrey A. MD Hocker, Amanda CNS ~ CC: Yenny Brown MD DATE OF SERVICE: 02/12/2020 CHIEF COMPLAINT: Chronic pain with cervical radiculopathy. HISTORY OF PRESENT ILLNESS: This is a 79-year-old gentleman who is followed in the Pain Clinic for his chronic pain. He has had a previous fusion in his cervical spine. He also has a complaint of bipedal neuropathy. Today, he is reporting that he has numbness and tingling in his feet that has increased. He also has pain in his arms as well. It is a dull aching pain that he is describing as an 8/10 today. He feels that his pain is increased due to the fact that he has been trying to decrease his methadone during this COVID outbreak. He has been taking a half a pill instead of a full 10-mg tablet because he was worried of being out due to his comorbidities. Normally, the patient rates his pain at a 6-7. He feels that activity and walking do make his pain worse. He uses a cane at all times. With his normal dose of methadone and lying down, he feels like his pain is fairly well managed. He denies problems with constipation as long as he uses his lactulose every other day. He would also like a refill of that medication. ALLERGIES: NEOSPORIN. MEDICATIONS: Lactulose, methadone 10 mg b.i.d., losartan, Flomax, acyclovir, olmesartan, hydrochlorothiazide, vitamin B12, vitamin D, furosemide, gabapentin 100 mg b.i.d. PQRS: 1. He has arthritic changes in his neck. He is not being treated for rheumatoid arthritis. 2. Height is 5 feet 6 inches, weight is 211, BMI is 34. 3. Vital signs 150/68, pulse is 85, respirations 16, oxygen sat is 96. 4. Pain score is 8/10. 5. Denies dizziness. He does use a cane for ambulation, but is in a wheelchair today. He has not fallen in the last 3 months. The patient is not on any blood thinners, but does take medicine for hypertension. His opioid therapy is greater than 6 weeks; therefore, an opioid signed contract is on the chart. Risk assessment tool is low. Functional assessment is . 6. Recreational drug use, he denies. He is not a smoker and does not drink alcohol. [address] [address] PAIN MANAGEMENT CONSULTATION Name: HERMANN ALVAREZ SUSAN Room #: REG CLJane Rutledge#: [id number] Admission: 02/12/20 Attend Phys: Nasrin Meza Discharge: Date of : 42 Report #: [id number] According to the prescription monitoring system, he last filled his medication on 01/12/2020. Medication in the end of October with his last visit has lasted him slightly longer than 3 months. PHYSICAL EXAMINATION: GENERAL: This is a well-developed, well-nourished white gentleman who appears his stated age, placing his current pain score at 8/10. He is alert and orientated and his affect is appropriate. HEENT: Normocephalic, atraumatic. 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 He has a well-healed scar in the posterior portion of his neck. MUSCULOSKELETAL: Upper extremity strength judged to be 4/5 in all major muscle groups as well as his lower extremity. He does use a cane for ambulation. Complains of burning in his bilateral arms and feet. IMPRESSION: 1. History of cervical fusion with cervical radiculopathy, status post decompressive laminectomy. 2. Hypertension. 3. Kidney disease. 4. Chronic pain related with opioid medication. 5. Bipedal neuropathy. PLAN: 1. We discussed treatment options with the patient today. The patient's pain has slightly increased though he has been trying to decrease his methadone through this COVID outbreak. He believes that once he starts his current regimen that hopefully his numbness and tingling will decrease slightly. I explained to the patient once he is on his normal dose of methadone if it has not, we may need to consider increasing his gabapentin slightly from 200 mg a day to 300 mg a day, but to watch for any edema in his lower extremities. The patient verbalizes understanding. 2. We will refill his methadone 10 mg t.i.d., #90 for today, 4 week and 8 week[address] We will have Dr. Edinson Brown send these electronically to his pharmacy. 3. I will refill his lactulose. The patient takes this every other day and finds it very beneficial in helping with his opioid constipation. 4. The patient will return in 3 months. The patient seen in collaboration with today. <ELECTRONICALLY SIGNED> By: Nasrin Meza 02/15/20 0849 0959 [id number] Nasrin Meza /elizabeth
== END ==
LOC: PAIN 07:19
DX: M54.12 Radiculopathy, cervical region (principal); G89.29 Other chronic pain; I10 Essential (primary) hypertension; N18.9 Chronic kidney disease, unspecified; F11.20 Opioid dependence, uncomplicated; G62.9 Polyneuropathy, unspecified; Z98.1 Arthrodesis status; Z88.8 Allergy status to other drugs, medicaments and biological substances; Z79.899 Other long term (current) drug therapy

== ENCOUNTER → 2020-06-03 | Outpatient (CLI) | payer OTHER ==
[~2020-06-03] VITALS: Ht 167.6 cm; Wt 93.9 kg
[2020-06-03 11:26] VITALS: BP 151/68
--- NOTE | 2020-06-03 11:36 | NUR ---
Pain Clinic Assessment: 1. History of Osteoarthritis: NECK History of Rheumatoid Arthritis: DENIES 2. Height: 5 ft. 6 in. 167.6 cm. Weight: 207.0 lb. oz. 93.895 kg. Patient's BMI: 33.4 3. Vital Signs: BP: 151/68 Pulse: 94 Resp: 18 Temp: 02 Sat: 97 ECG Mon: 4. Pain Intensity: 7 5. Fall Risk: Dizziness: N Needs help standing or walking: Y Fallen in the last 3 months: N Fall risk comments: FELL 3 WEEKS AGO- DID NOT SEEK CARE 6. Patient on Blood Thinner: NONE 7. History of Hypertension: Y 8. Opioid Therapy greater than 6 weeks: Y Opiate Contract Signed: 05/07/16 9. Risk Assessment Tool Provided: LOW RISK 10/16 10. Functional Assessment Tool: 11. Recreational Drug Use: Never Drug Type: Tobacco Use: Never Smoker Tobacco Type: Amount or Packs/day: How Many Years: Alcohol Use: No Frequency: Quant:
--- NOTE | 2020-06-24 15:50 | HPC ---
[facility] [address] [place] [address] PAIN MANAGEMENT CONSULTATION Name: HERMANN ALVAREZ Room #: REG MAGO BroderickBecky#: [id number] Admission: 06/03/20 Attend Phys: Tati Brown MD Discharge: Date of : 42 Report #: [id number] THIS REPORT FOR: cc: Malathi Zhang K. Steven DO Brown, N. Wayne MD ~ CC: Malathi Brown DATE OF SERVICE: 06/03/2020 CHIEF COMPLAINT: Chronic neck pain that goes down into both arms. HISTORY: The patient is a 79-year-old gentleman who has been followed in the Pain Clinic because of chronic pain. He has had cervical fusion. He had a history of cervical myelopathy. He still has some signs of neuropathy. He has pain that radiates down into his arms and hands. Notes that there is some tingling and pain in both feet. He has been using medications. Gabapentin has been marginally helpful. He has had some swelling in his feet and associates that with use of Lyrica. Notes that there is such swelling in his lower extremity on the left side that there is a weeping of fluid. He has returned today for renewal of his medications and evaluation of his condition. ALLERGIES: NEOSPORIN. CURRENT MEDICATIONS: Methadone 10 mg b.i.d., losartan 50 mg daily, Flomax 0.4 mg daily, acyclovir 200 mg up to 5 times daily, olmesartan daily, vitamin B12, vitamin D, Demadex 20 mg b.i.d., and gabapentin 100 mg b.i.d. PAIN CLINIC ASSESSMENT AND PQRS: 1. 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 He is not being treated for rheumatoid arthritis. 2. Height 5 feet 6 inches, weight 207 pounds, BMI 33.4. 3. Vital signs: Blood pressure 151/65, pulse 94, respiratory rate 18, and room air saturation 97%. 4. Pain intensity 04/22. 5. Fall history: The patient fell 3 weeks ago. He did not need to seek help from a medical standpoint. 6. Blood thinner. The patient is not on a blood thinning medication. 7. Hypertension. The patient is being treated for hypertension. 8. Opioids greater than 6 weeks. The patient receives medication from the Pain Clinic. 9. Risk assessment tool, low for opioid use. 10. Functional assessment tool . 11. Recreational drug use. The patient denies. 12. Tobacco: [place] [address] PAIN MANAGEMENT CONSULTATION Name: HERMANN ALVAREZ Room #: REG [facility]#: [id number] Admission: 06/03/20 Attend Phys: Tati Brown MD Discharge: Date of : 42 Report #: [id number] 13. Alcohol: The patient denies frequent use of alcoholic beverages. PHYSICAL EXAMINATION: GENERAL: The patient is a well-developed, well-nourished white male. Appears his stated age. He is alert and oriented x 3. His affect is appropriate. Speech is fluent. HEENT: Normocephalic, atraumatic. Extraocular eye muscles intact. 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 The patient also has a scar at the angle of his mouth. She has a well-healed scar in the posterior portion of his neck from previous surgery. HEART: Regular rate. ABDOMEN: Nontender. LUNGS: Generally clear. EXTREMITIES: Upper extremity muscle strength judged to be 4+/5 for the major muscle groups in the upper extremity. Lower extremity, the patient has muscle strength of 4/5. The patient walks with use of a cane. Has a significant amount of swelling in the lower extremities. There is a small amount of weeping of clear fluid from his skin, +4 edema. IMPRESSION: 1. History of cervical fusion with cervical radiculopathy, status post decompressive laminectomy. 2. Hypertension. 3. Kidney disease. 4. Stomach problems. 5. Chronic pain treated with opioids to help control the discomfort. 6. Significant swelling in the lower extremities with +4 weeping edema and exudate. RECOMMENDATIONS: We discussed treatment options with the patient. At this juncture, we will continue with his medications. A script for his medications has been provided. The patient feels that his lactulose is helpful and this has been renewed. The patient has been provided with naloxone nasal spray 4 mg should he have respiratory problems and methadone 10 mg 1 p.o. b.i.d. A script for this medication for next 3 months has been provided. He will call us if he has any concerns. He will follow up with his primary physician because of the significant swelling in the lower extremity. We would like to thank you for letting us participate in his care. We hope he continues to improve. <ELECTRONICALLY SIGNED> By: Tati Brown MD 06/24/20 1550 [id number] Tati Brown MD /nt
== END ==
LOC: PAIN 05-12 06:55
PROVIDERS: ATTEND Anesthesiology Pain Medicine
DX: M54.2 Cervicalgia (principal); G89.29 Other chronic pain; M96.1 Postlaminectomy syndrome, not elsewhere classified; I10 Essential (primary) hypertension; N18.9 Chronic kidney disease, unspecified; F11.20 Opioid dependence, uncomplicated; K92.89 Other specified diseases of the digestive system; Z87.39 Personal history of other diseases of the musculoskeletal system and connective tissue; Z88.8 Allergy status to other drugs, medicaments and biological substances; Z79.899 Other long term (current) drug therapy

== ENCOUNTER → 2020-08-12 | Outpatient (CLI) | payer OTHER ==
[~2020-08-12] VITALS: Ht 167.6 cm; Wt 92.5 kg
--- NOTE | ~2020-08-12 | HPC ---
[facility] [address] [place] [place] [address] PAIN MANAGEMENT CONSULTATION Name: HERMANN ALVAREZ Room #: REG MAGO BroderickBecky#: [id number] Admission: 08/12/20 Attend Phys: Tati Brown MD Discharge: Date of : 44 Report #: [id number] THIS REPORT FOR: cc: Malathi Zhang K. Steven DO Brown, N. Wayne MD ~ CC: Malathi Zhang DATE OF SERVICE: 08/12/2020 CHIEF COMPLAINT: Neck and upper extremity pain. HISTORY: The patient is a 79-year-old gentleman who has been followed in the pain clinic because of chronic pain. Has had cervical fusion. Has a history of cervical myelopathy. Still has some neuropathy symptoms. Has pain that radiates down into his arms and his hands. Notes some tingling in his feet. He has been using pain medications and found these helpful. He does not find gabapentin is helpful as he would like. He does have some swelling in his feet associated with use of Lyrica. He has returned today to the pain clinic for renew of his medications. He has bilateral leg and foot pain. Also, notes pain in his arms, left and right. There is a dull, aching, burning, numbness, tingling sensation. He rates it as a 7 overall. Pain will be exacerbated with activity, such as walking. His pain is worse in the morning. It improves somewhat with use of medication as well as when he lies down. He has returned today for renewal. ALLERGIES: NEOSPORIN. CURRENT MEDICATIONS: Methadone 10 mg b.i.d., losartan 50 mg daily, Flomax 0.4 mg daily, acyclovir mg up to 5 times daily, olmesartan daily, vitamin B12, vitamin D, Demadex 20 mg b.i.d., gabapentin 100 mg b.i.d. PAIN CLINIC ASSESSMENT AND PQRS: 1. 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 He is not being treated for rheumatoid arthritis. 2. Height 5 feet 6 inches, weight 204 pounds, BMI is 32. 3. Vital Signs: Blood pressure 137/63, pulse 75, respiratory rate 16, room air saturation is 99%. 4. Pain intensity 10. 5. Fall history: The patient has fallen. Did not seek help. This was in the bathroom. 6. Blood thinner. The patient is not on a blood thinning medication. 7. Hypertension. The patient is being treated for hypertension. 8. Opioids greater than [address] [address] PAIN MANAGEMENT CONSULTATION Name: HERMANN ALVAREZ SUSAN Room #: REG CL Davie.#: [id number] Admission: 08/12/20 Attend Phys: Tati Brown MD Discharge: Date of : 42 Report #: [id number] 9. Risk assessment tool, low for opioid use. 10. Functional assessment tool . 11. Recreational drug use: The patient denies. 12. Tobacco: The patient denies. PHYSICAL EXAMINATION: GENERAL: The patient is a well-developed, well-nourished white male. Appears his stated age. He is alert and oriented x 3. His affect is appropriate. Speech is fluent. He is accompanied by his caregiver. HEENT: Normocephalic, atraumatic. Extraocular eye muscles intact. 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 He has a well-healed scar in the angle of his mouth, has well-healed scar in the posterior portion of his neck from previous surgeries. HEART: Regular rate. ABDOMEN: Nontender. LUNGS: Generally clear. EXTREMITIES: Upper extremity muscle strength judged to be 4+/5 for the major muscle groups in the upper extremity. Lower extremity muscle strength judged to be 4+/5. The patient walks with use of a cane. Has had a significant amount of swelling in the lower extremities. Has had edema in the lower extremities. IMPRESSION: 1. History of cervical fusion and cervical radiculopathy, status post decompressive laminectomy. 2. Hypertension. 3. Kidney disease. 4. Stomach problems. 5. Chronic pain treated with opioids to help control the discomfort. 6. Significant swelling in the lower extremities with +4 weeping edema. RECOMMENDATIONS: We discussed treatment options with the patient. A script for his medications has been provided. He will continue with his medications as tolerated. He will call us if he has any problems. The patient has been given naloxone spray in the past. He will continue with methadone 10 mg 1 p.o. b.i.d. He will call us if he has any concerns. We would like to thank you for letting us participate in his care. We hope he continues to improve. He is aware that opioid medications can become less effective as time goes on because of development of tolerance. By: [id number] Tati Brown MD /CHIDI
[2020-08-12 10:51] VITALS: BP 136/63
--- NOTE | 2020-08-12 11:27 | NUR ---
Pain Clinic Assessment: 1. History of Osteoarthritis: NECK History of Rheumatoid Arthritis: DENIES 2. Height: 5 ft. 6 in. 167.6 cm. Weight: 204.0 lb. oz. 92.534 kg. Patient's BMI: 32.9 3. Vital Signs: BP: 136/63 Pulse: 75 Resp: 16 Temp: 02 Sat: 99 ECG Mon: 4. Pain Intensity: 7 5. Fall Risk: Dizziness: N Needs help standing or walking: Y Fallen in the last 3 months: N Fall risk comments: FELL 3 WEEKS AGO- DID NOT SEEK CARE 6. Patient on Blood Thinner: NONE 7. History of Hypertension: Y 8. Opioid Therapy greater than 6 weeks: Y Opiate Contract Signed: 05/07/16 9. Risk Assessment Tool Provided: LOW RISK 10/16 10. Functional Assessment Tool: 11. Recreational Drug Use: Never Drug Type: Tobacco Use: Never Smoker Tobacco Type: Amount or Packs/day: How Many Years: Alcohol Use: No Frequency: Quant:
== END ==
LOC: PAIN 07:08
PROVIDERS: ATTEND Anesthesiology Pain Medicine
DX: M54.12 Radiculopathy, cervical region (principal); I10 Essential (primary) hypertension; G89.29 Other chronic pain; Z79.891 Long term (current) use of opiate analgesic

== ENCOUNTER → 2020-10-12 | Outpatient (CLI) | payer OTHER ==
[2020-10-12 12:34] VITALS: BP 87/47
--- NOTE | 2020-10-12 12:46 | NUR ---
Pain Clinic Assessment: 1. History of Osteoarthritis: NECK History of Rheumatoid Arthritis: DENIES 2. Height: 5 ft. 6 in. 167.6 cm. Weight: lb. oz. kg. Patient's BMI: 3. Vital Signs: BP: 87/47 Pulse: 85 Resp: 18 Temp: 02 Sat: 98 ECG Mon: 4. Pain Intensity: 7 5. Fall Risk: Dizziness: N Needs help standing or walking: Y Fallen in the last 3 months: Y Fall risk comments: 4 DAYS AGO THE PATIENT WAS SITTING ON THE EDGE OF THE BED AND SLID OFF ON THE FLOOR. PT'S CAREGIVER FOUND HIM THERE 2 HOURS LATER. SINCE THAT TIME, PT HAS BEEN "LETHARGIC WITH VERY LITTLE APPETITE. PT DENIES SYMPTOMS OF COVID AND NEVER LEAVES HIS APPARTMENT EXCEPT TO COME TO THE PAIN CLINIC-- 6. Patient on Blood Thinner: NONE 7. History of Hypertension: Y 8. Opioid Therapy greater than 6 weeks: Y Opiate Contract Signed: 05/07/16 9. Risk Assessment Tool Provided: LOW RISK 10/16 10. Functional Assessment Tool: 11. Recreational Drug Use: Never Drug Type: Tobacco Use: Never Smoker Tobacco Type: Amount or Packs/day: How Many Years: Alcohol Use: No Frequency: Quant:
== END ==
LOC: PAIN 06:50
PROVIDERS: ATTEND Anesthesiology Pain Medicine
DX: M54.12 Radiculopathy, cervical region (principal); I10 Essential (primary) hypertension; G89.29 Other chronic pain; Z88.1 Allergy status to other antibiotic agents; Z79.891 Long term (current) use of opiate analgesic

== ENCOUNTER 2020-12-17 11:37 | Emergency (ER) | payer OTHER ==
[~2020-12-17] VITALS: Ht 167.6 cm; Wt 88.5 kg
[2020-12-17 12:02] LABS: ANION GAP 11 mmol/L (7-16); BUN 29 mg/dL (7-18); CALCIUM 9.7 mg/dL (8.5-10.1); CHLORIDE 101 mmol/L (98-107); CO2 26 mmol/L (21-32); CREATININE 1.6 mg/dL (0.7-1.3); GLUCOSE 130 mg/dL (74-106); POTASSIUM 4.9 mmol/L (3.5-5.1); SODIUM 138 mmol/L (136-145)
[2020-12-17 12:05] LABS: ABSOLUTE NEUTROPHILS 4.8 thou/uL (1.4-8.2); BASOPHILS 0.8 % (0.0-2.0); EOSINOPHILS 1.5 % (0.0-3.0); HEMATOCRIT 41.7 % (42.0-52.0); HEMOGLOBIN 13.5 gm/dL (14.0-18.0); LYMPHOCYTES 9.1 % (24.0-44.0); MCH 31.1 pg (26.0-34.0); MCHC 32.4 g/dL (28.0-37.0); MCV 95.8 fL (80.0-100.0); PLATELET COUNT 138 thou/uL (150-400); POLYS 79.6 % (36.0-66.0); RBC 4.36 mil/uL (4.50-6.00); RDW 14.1 % (10.5-14.5); WBC 6.1 thou/uL (4.0-11.0)
[2020-12-17 12:12] LABS: DIRECT BILIRUBIN < 0.1 mg/dL (<0.1-0.2); LIPASE 63 U/L (73-393); SGOT 48 U/L (15-37); SGPT 34 U/L (16-63); TOTAL BILIRUBIN 1.1 mg/dL (0.2-1.0); TOTAL PROTEIN 8.4 g/dL (6.4-8.2); TROPONIN-I <0.06 ng/mL (<0.06)
[2020-12-17] MEDS ORDERED: CALCITRIOL0.25 MCG PO (14:14)
[2020-12-17] MEDS ORDERED: NORVASC5 MG PO (14:14)
[2020-12-17] MEDS ORDERED: FINASTERIDE5 MG PO (14:14)
[2020-12-17 14:23] LABS: URINE BILIRUBIN NEGATIVE (Negative); URINE BLOOD NEGATIVE (Negative); URINE CLARITY CLEAR; URINE COLOR YELLOW; URINE GLUCOSE-RANDOM* NEGATIVE (Negative); URINE KETONES NEGATIVE (Negative); URINE LEUKOCYTES-REFLEX NEGATIVE (Negative); URINE NITRITE-REFLEX NEGATIVE (Negative); URINE PROTEIN (DIPSTICK) NEGATIVE (Negative); URINE SPECIFIC GRAVITY 1.015 (1.005-1.035); URINE UROBILINOGEN 0.2 E.U./dl (0.2-1.0)
[2020-12-17 14:52] LABS: AMP/METHAMP Negative (Negative); BARBITURATES Negative (Negative); BENZODIAZEPINES Negative (Negative); COCAINE Negative (Negative); METHADONE POSITIVE (Negative); OPIATES Negative (Negative); PCP Negative (Negative)
[2020-12-17] MEDS ORDERED: DOXYCYCLINE 10100 MG PO (15:17)
[2020-12-17 16:29] VITALS: BP 122/53
--- NOTE | 2020-12-19 07:36 | EKG ---
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 : 1940 Requested By: Jamar Blount Order Number: [id number] MD: Terrence Alex Measurements Intervals [place] Rate: 93 P: 72 OR: 198 QRS: 52 QRSD: 90 T: 54 QT: 367 QTc: 457 Interpretive Statements Sinus tachycardia Ventricular trigeminy Consider left atrial enlargement Compared to ECG 07/25/1995 15:41:00 Ventricular premature complex(es) now present Sinus rhythm no longer present T-wave abnormality no longer present Possible ischemia no longer present Electronically Signed On 12-19-2020 7:36:48 CHIEF MINISTER by Terrence Alex [email or web address] <ELECTRONICALLY SIGNED> By: Terrence Alex MD, [facility] 12/19/20 0736 1201 1201 Terrence Alex MD, [facility] /EPI
== END 2020-12-17 15:19 | disposition home or self-care (01) ==
LOC: ER 11:37
PROVIDERS: Nurse Practitioner
DX: R53.1 Weakness (principal); L03.116 Cellulitis of left lower limb; Z79.899 Other long term (current) drug therapy; Z88.1 Allergy status to other antibiotic agents; Z20.822 Contact with and (suspected) exposure to COVID-19

== ENCOUNTER → 2021-01-11 | Outpatient (CLI) | payer OTHER ==
[~2021-01-11] VITALS: Ht 167.6 cm; Wt 94.8 kg
[~2021-01-11] MED LIST changes: +CALCITRIOL0.25 MCG PO; +DOXYCYCLINE 10100 MG PO; +FINASTERIDE5 MG PO; +NORVASC5 MG PO
--- NOTE | ~2021-01-11 | HPC ---
[facility] [place] [place] [address] [place] [address] PAIN MANAGEMENT CONSULTATION Name: HERMANN ALVAREZ Room #: REG MAGO Davie.#: [id number] Admission: 01/11/21 Attend Phys: Nasrin Meza Discharge: Date of : 42 Report #: [id number] THIS REPORT FOR: cc: Malathi Zhang K. Steven DO Hocker,Nasrin BONNER ~ DATE OF SERVICE: 01/11/2021 CHIEF COMPLAINT: Chronic cervical pain, peripheral neuropathy. HISTORY OF PRESENT ILLNESS: This is a pleasant and slightly jovial 80-year-old gentleman who returns to the pain clinic today for renewal of his opioid medication. Today, he is reporting a pain score of 5/10. He states that most of his pain is in his cervical spine that radiates into his arms. He also has significant peripheral neuropathy in his legs and feet. He describes his pain as a burning, numbness, dull aching sensation that is worse in the morning and worse with activity. He reports that lying down is beneficial as well as his methadone. He denies constipation as long as he takes his lactulose on a regular basis. Today, he would like renewal of his medications and is wondering if there is anything to do for his increasing neuropathy. The patient did have the COVID vaccine on 12/16/2020. He reports having an adverse reaction and did go to the Emergency Room the next day. At that time, he was found to have cellulitis in his legs, which started him on antibiotic therapy. Those have since been finished. The patient does continue to complain of edema in his legs and tightness in his lower extremities. He is scheduled to have his second COVID vaccine on 01/13/2021. ALLERGIES: BACTROBAN, NEOMYCIN, POLYMYXIN. MEDICATIONS: Calcitriol, amlodipine, methadone 10 mg b.i.d., finasteride, lactulose, losartan, ____, olmesartan, hydrochlorothiazide, vitamin B, vitamin D, Demadex and gabapentin 300 mg b.i.d. PQRS: 1. He has arthritic changes in his neck. Denies any rheumatoid arthritis. 2. Height is 5 feet 6 inches, weight is 209, BMI is 33. 3. Vital signs 148/63, pulse is 66, respirations 16, oxygen sat is 96%. 4. Pain score is 5/10. 5. Denies dizziness. Does need assistance with ambulation. He is in a wheelchair. 6. The patient has not fallen in the last 3 months. 7. The patient is not on any blood thinners, but he does take medicine for hypertension. 8. Opioid therapy is greater than 6 weeks; therefore, an opioid signed contract is on the chart. Risk assessment is low. Functional assessment is . [address] [address] PAIN MANAGEMENT CONSULTATION Name: HERMANN ALVAREZ Room #: REG [facility] Aamir#: [id number] Admission: 01/11/21 Attend Phys: Nasrin Meza Discharge: Date of : 42 Report #: [id number] 9. Recreational drug use, he denies. He is not a smoker and does not drink alcohol. According to the prescription monitoring system, he is due to fill his medications this week, filling them in a timely fashion. His morphine milliequivalent is 60 MMEs. PHYSICAL EXAMINATION: GENERAL: This is a well-developed, well-nourished white gentleman who appears his stated age, rating his pain score at 5/10. HEENT: Normocephalic, atraumatic. Extraocular eye muscles are intact. He is wearing a facial covering. His sclerae are nonintrinsic. NECK: Without adenopathy or JVD. He has a cavernous incision in the posterior portion of his neck. EXTREMITIES: His upper extremity strength is judged to be 4/5 for his major muscle groups. MUSCULOSKELETAL: He is without significant scoliosis, kyphosis or lordosis. He is in a wheelchair today. Muscle strength in lower extremities 5/5. He does have edematous legs of 2+. Some hemosiderin standing bilaterally in his lower legs. No open lesions on his lower extremities. IMPRESSION: 1. History of cervical fusion and cervical radiculopathy, status post decompression laminectomy. 2. Hypertension. 3. Kidney disease. 4. Cellulitis and edema in his lower extremities. 5. Chronic pain, treated with complex opioid medications. PLAN: 1. We discussed treatment options with the patient today. He believes the methadone is beneficial in helping control his pain. We will continue his 10 mg b.i.d. and have Dr. Bryce Brown send the 3 months of medications electronically to his pharmacy. 2. The patient continues his lactulose and we will renew this as well for constipation issues. 3. We did discuss the patient's ongoing edema in his lower extremities and increase peripheral neuropathy symptoms. I encouraged the patient to elevate his legs on a daily basis when he sits in his recliner. He reports his edema is much improved upon awakening in the morning. We discussed dependent edema. His caregiver is with him today. She will try to continue to encourage him to elevate his legs. 4. His machine turner has discussed increasing his gabapentin to see if this helps with his neuropathy. I explained to the patient that gabapentin may cause some increased swelling, but if his swelling, can be controlled with elevating his legs. He may be able to increase that slightly to see if that helps with [facility] [address] [place] [address] PAIN MANAGEMENT CONSULTATION Name: HERMANN ALVAREZ Room #: REG [facility]..#: [id number] Admission: 01/11/21 Attend Phys: Nasrin Meza Discharge: Date of : 42 Report #: [id number] some of his neuropathy symptoms. Time spent with the patient in consultation, reviewing clinical studies, physician reports, physical examination in correlation of findings and the medical documentation to determine possible treatments of 15 minutes. Time spent in preparation for appointment reviewing prescription monitoring system, reviewing previous records and previous treatment options and reviewing current medications of 5 minutes. Time spent in preparing and sending electronic prescriptions if appropriate with collaborating physician and documentation of visit and plan of care of 8 minutes. Total time spent 28 minutes. By: [id number] Nasrin Meza /nt
[2021-01-11 13:55] VITALS: BP 148/63
--- NOTE | 2021-01-11 14:05 | NUR ---
Pain Clinic Assessment: 1. History of Osteoarthritis: NECK History of Rheumatoid Arthritis: DENIES 2. Height: 5 ft. 6 in. 167.6 cm. Weight: 209.0 lb. oz. 94.802 kg. Patient's BMI: 33.7 3. Vital Signs: BP: 148/63 Pulse: 66 Resp: 16 Temp: 02 Sat: 96 ECG Mon: 4. Pain Intensity: 5 5. Fall Risk: Dizziness: N Needs help standing or walking: Y Fallen in the last 3 months: N Fall risk comments: 4 DAYS AGO THE PATIENT WAS SITTING ON THE EDGE OF THE BED AND SLID OFF ON THE FLOOR. PT'S CAREGIVER FOUND HIM THERE 2 HOURS LATER. SINCE THAT TIME, PT HAS BEEN "LETHARGIC WITH VERY LITTLE APPETITE. PT DENIES SYMPTOMS OF COVID AND NEVER LEAVES HIS APPARTMENT EXCEPT TO COME TO THE PAIN CLINIC-- 6. Patient on Blood Thinner: NONE 7. History of Hypertension: Y 8. Opioid Therapy greater than 6 weeks: Y Opiate Contract Signed: 05/07/16 9. Risk Assessment Tool Provided: LOW RISK 10/16 10. Functional Assessment Tool: 11. Recreational Drug Use: Never Drug Type: Tobacco Use: Never Smoker Tobacco Type: Amount or Packs/day: How Many Years: Alcohol Use: No Frequency: Quant:
== END ==
LOC: PAIN 06:58
PROVIDERS: ATTEND Clinical Nurse Specialist Adult Health
DX: G62.9 Polyneuropathy, unspecified (principal); M54.2 Cervicalgia; G89.29 Other chronic pain; I10 Essential (primary) hypertension; L03.115 Cellulitis of right lower limb; M96.1 Postlaminectomy syndrome, not elsewhere classified; N18.9 Chronic kidney disease, unspecified; Z88.8 Allergy status to other drugs, medicaments and biological substances; Z79.899 Other long term (current) drug therapy

== ENCOUNTER → 2021-05-12 | Outpatient (CLI) | payer OTHER ==
[~2021-05-12] VITALS: Ht 167.6 cm; Wt 80.2 kg
[2021-05-12 12:24] VITALS: BP 142/69
--- NOTE | 2021-05-12 12:29 | NUR ---
Pain Clinic Assessment: 1. History of Osteoarthritis: NECK History of Rheumatoid Arthritis: DENIES 2. Height: 5 ft. 6 in. 167.6 cm. Weight: 176.8 lb. oz. 80.196 kg. Patient's BMI: 28.5 3. Vital Signs: BP: 142/69 Pulse: 78 Resp: 16 Temp: 02 Sat: 94 ECG Mon: 4. Pain Intensity: 7 5. Fall Risk: Dizziness: N Needs help standing or walking: N Fallen in the last 3 months: N Fall risk comments: 4 DAYS AGO THE PATIENT WAS SITTING ON THE EDGE OF THE BED AND SLID OFF ON THE FLOOR. PT'S CAREGIVER FOUND HIM THERE 2 HOURS LATER. SINCE THAT TIME, PT HAS BEEN "LETHARGIC WITH VERY LITTLE APPETITE. PT DENIES SYMPTOMS OF COVID AND NEVER LEAVES HIS APPARTMENT EXCEPT TO COME TO THE PAIN CLINIC-- 6. Patient on Blood Thinner: NONE 7. History of Hypertension: Y 8. Opioid Therapy greater than 6 weeks: Y Opiate Contract Signed: 05/07/16 9. Risk Assessment Tool Provided: LOW RISK 10/16 10. Functional Assessment Tool: 11. Recreational Drug Use: Never Drug Type: Tobacco Use: Never Smoker Tobacco Type: Amount or Packs/day: How Many Years: Alcohol Use: No Frequency: Quant:
== END ==
LOC: PAIN 06:55
PROVIDERS: ATTEND Anesthesiology Pain Medicine
DX: M54.12 Radiculopathy, cervical region (principal); I10 Essential (primary) hypertension; R60.0 Localized edema; Z79.891 Long term (current) use of opiate analgesic; Z79.899 Other long term (current) drug therapy

== ENCOUNTER → 2021-10-11 | Outpatient (CLI) | payer OTHER ==
[~2021-10-11] VITALS: Ht 152.4 cm; Wt 79.4 kg
[~2021-10-11] MED LIST changes: +GENERLAC10 GM/15 M PO
[2021-10-11 12:47] VITALS: BP 132/61
--- NOTE | 2021-10-11 12:55 | NUR ---
Pain Clinic Assessment: 1. History of Osteoarthritis: NECK History of Rheumatoid Arthritis: DENIES 2. Height: 5 ft. 6 in. 152.4 cm. Weight: 175.0 lb. oz. 79.380 kg. Patient's BMI: 34.2 3. Vital Signs: BP: 132/61 Pulse: 81 Resp: 18 Temp: 02 Sat: 98 ECG Mon: 4. Pain Intensity: 7 TO 8 5. Fall Risk: Dizziness: N Needs help standing or walking: Y Fallen in the last 3 months: N Fall risk comments: 4 DAYS AGO THE PATIENT WAS SITTING ON THE EDGE OF THE BED AND SLID OFF ON THE FLOOR. PT'S CAREGIVER FOUND HIM THERE 2 HOURS LATER. SINCE THAT TIME, PT HAS BEEN "LETHARGIC WITH VERY LITTLE APPETITE. PT DENIES SYMPTOMS OF COVID AND NEVER LEAVES HIS APPARTMENT EXCEPT TO COME TO THE PAIN CLINIC-- 6. Patient on Blood Thinner: NONE 7. History of Hypertension: Y 8. Opioid Therapy greater than 6 weeks: Y Opiate Contract Signed: 05/07/16 9. Risk Assessment Tool Provided: LOW RISK 10/16 10. Functional Assessment Tool: 11. Recreational Drug Use: Never Drug Type: Tobacco Use: Never Smoker Tobacco Type: Amount or Packs/day: How Many Years: Alcohol Use: No Frequency: Quant:
== END ==
LOC: PAIN 10-04 07:00
PROVIDERS: ATTEND Clinical Nurse Specialist Adult Health
DX: M54.12 Radiculopathy, cervical region (principal); M96.1 Postlaminectomy syndrome, not elsewhere classified; I10 Essential (primary) hypertension; G89.29 Other chronic pain; Z88.8 Allergy status to other drugs, medicaments and biological substances; Z79.899 Other long term (current) drug therapy